=== PATIENT | female | born 1930 | race Caucasian/White ===

== ENCOUNTER 2016-05-29 13:01 | Emergency (ER) | payer MEDICARE, OTHER ==
--- NOTE | 2016-05-29 13:08 | EDM.PDOC ---
ED HISTORY OF PRESENT ILLNESS - General Chief Complaint: Respiratory Problem Stated Complaint: TROUBLE BREATHING/ COPD Time Seen by Provider: 05/29/16 13:08 Source of Information: Reports: Patient History Limitations: Reports: No limitations - History of Present Illness INITIAL COMMENTS - FREE TEXT/NARRATIVE: 86-year-old female presents to the ED in the accompaniment of her son. History of gradually worsening dyspnea over the last 24 hours. No worsening of her cough. Oxygen saturations dropped to as low as 62% on normal exertion today. She has chronic COPD/asthma. Has a history of heart failure as well. She reports her weight is staying around one [id number] daily. She is currently on Lasix 40 mg twice daily. No real changes in her medications have been made in the recent 3 months. No associated fever chills or sputum production. She does present a little bit of phlegm first in the morning. No hemoptysis. No chest pain. Usually on oxygen 2.5 L at all times. She is a little bit of nasal congestion and feels her throat is a little parched lay almost like it has thrush.she was able sleep from about 10 to 1:30 and then fell back asleep about 4:00 after taking her breathing treatments for while. Symptom Onset Date: 05/28/16 Timing/Duration: Reports: Hour(s):, Getting worse, Gradual onset Severity: moderate Location, General: Reports: chest (dyspnea.) Quality: Reports: Other (shortness of breath) Improves with: Reports: Rest (and oxygen.) Worsens with: Reports: Movement Context, General: Denies: Activity, Exercise, Sick contact, Trauma, Other Associated Symptoms (General): Reports: cough, malaise, shortness of breath ( see history present illness), weakness (feels little weak today.). Denies: confusion, chest pain, cough w sputum, diaphoresis, fever/chills, headaches, loss of appetite, nausea/vomiting, rash, seizure, syncope Treatments [employer]: Reports: Other (see below) (no changes in medications. She took her normal medications this morning.) - Related Data Allergies/ADRs: Allergies Allergy/AdvReac Type Severity Reaction Status Date / Time amlodipine [From Norvasc] Allergy Other Verified 05/29/16 13:19 benazepril Allergy Itching Verified 03/01/15 11:58 carvedilol [From Coreg] Allergy Other Verified 05/29/16 13:20 irbesartan Allergy Itching Verified 03/01/15 11:58 potassium chloride Allergy Itching Verified 05/29/16 13:19 ramipril Allergy Itching Verified 03/01/15 11:58 losartan potassium Allergy Itching Uncoded 05/29/16 13:20 Home Meds: Home Meds Albuterol Sulfate 1 ampule NEB Q4HR PRN 11/12/13 [History] Arformoterol [Brovana] 15 mcg IH BID 11/12/13 [History] Atenolol 25 mg PO BID 11/12/13 [History] Budesonide [Pulmicort] 0.5 mg NEB BID 11/12/13 [History] Ca Cmb No.1/Vit D3/B-6/FA/B12 [Vitamin D3 1,000 Unit] 1,000 mg PO DAILY [History] Furosemide [Lasix] 40 mg PO BID 11/12/13 [History] [place]-3 Fatty Acids [Fish Oil] 500 mg PO DAILY 11/12/13 [History] cycloSPORINE [Restasis] 1 drop TOP DAILY 11/12/13 [History] prednisoLONE Acetate [Pred Forte 1% Ophth Susp] 1 drop OP DAILY 11/12/13 [ History] Acyclovir [Zovirax] 800 mg PO DAILY 03/01/15 [History] Levothyroxine [Synthroid] 100 mcg PO DAILY 03/01/15 [History] Umeclidinium Brm/Vilanterol Tr [Anoro Ellipta 62.5-25 Mcg INH] 1 puff INH DAILY 03/01/15 [History] cloNIDine [Catapres] 0.1 mg PO BID 03/01/15 [History] methylPREDNISolone [Medrol] 0 mg PO ASDIRECTED 03/04/15 [History] Carboxymethylcell/Glycerin/Pf [Refresh Optive Sensitive Drops] 1 drop TOP DAILY 05/29/16 [History] Magnesuim Potassium Otc 66 mg PO TID 05/29/16 [History] Spironolactone [Aldactone] 25 mg PO BID #60 tablet 05/29/16 [Rx] Theophylline [Theophylline Anhydrous] 300 mg PO BID 05/29/16 [History] prednisoLONE Acetate [Prednisolone Acetate] 1 drop TOP TID 05/29/16 [History] Past Medical History Cardiovascular History: Reports: Heart Failure, High cholesterol, Hypertension Respiratory History: Reports: COPD Other Respiratory History: Chronic oxygen use at 2 liters Endocrine/Metabolic History: Reports: Hypothyroidism (on levo thyroxine supplement.) 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 Other Dermatologic History: Varicose Vein Surgery - Past Surgical History Other HEENT Surgeries/Procedures: Bilateral cornea transplant Social & Family History - Tobacco Use Smoking Status *Q: Former Smoker Years of Tobacco use: 30 Packs/Tins Daily: 5 Used Tobacco, but Quit: Yes Month Tobacco Last Used: 1998 Second Hand Smoke Exposure: No - Recreational Drug Use Recreational Drug Use: No - Living Situation & Occupation Living situation: Reports: alone Occupation: retired ED ROS GENERAL - Review of Systems Review Of Systems: See Below Constitutional: Reports: weakness, fatigue, decreased appetite (today). Denies : fever, chills, malaise, weight loss HEENT: Reports: Other (throat feels a bit raw. She morning if she doesn't have a bit of thrush.) Respiratory: Reports: shortness of breath, wheezing. Denies: pleuritic chest pain, cough, sputum, hemoptysis Cardiovascular: Reports: No symptoms, Blood pressure problem, Dyspnea on exertion (usually a bit in her lower cavities. No worse lately.), Edema. Denies : Chest pain, Claudication (chronic hypertension), Lightheadedness, Orthopnea, Palpitations (chronic), PND, Syncope, Other Endocrine: Reports: fatigue GI/Abdominal: Reports: No symptoms : Reports: frequency, urgency Musculoskeletal: Reports: back pain, joint pain Skin: Reports: no symptoms (knees and hips) Neurological: Reports: no symptoms Psychiatric: Reports: No symptoms Hematologic/Lymphatic: Reports: no symptoms ED EXAM, GENERAL - Physical Exam Exam: See Below Exam Limited By: No limitations General Appearance: alert, WD/WN, no apparent distress, other (she is working fairly hard to break.) Eye Exam: bilateral eye: normal inspection Throat/Mouth: Normal inspection, Normal lips, Normal oropharynx Head: atraumatic, normocephalic Neck: normal inspection, supple, non-tender. No: limited range of motion, lymphadenopathy (L), lymphadenopathy (R) Respiratory/Chest: no accessory muscle use, respiratory distress (mild tachypnea 20-24 per minute.), decreased breath sounds (decreased breath sounds in the posterior 40% of lung tavarez.), rales (base of right lung.) Cardiovascular: normal peripheral pulses, regular rate, rhythm, no edema, no gallop, no murmur Peripheral Pulses: 2+: posterior tibial (L), posterior tibial (R), dorsalis pedis (L), dorsalis pedis (R) GI/Abdominal: normal bowel sounds, soft, non tender, no organomegaly, no abnormal bruit Back Exam: full range of motion. No: CVA tenderness (L), CVA tenderness (R) Extremities: normal range of motion, non-tender, pedal edema (2+ pitting edema primarily lower extremity around the ankle.) Neurological: alert, oriented, CN II-XII intact, normal cognition Psychiatric: normal affect, normal mood Skin Exam: Warm, Dry, Intact, Normal color, No rash EKG INTERPRETATION EKG Date: 05/29/16 Time: 13:20 Rhythm: NSR Rate (beats/min): 71 [place]: RAD-right axis deviation (borderline. IE vertical heart) P-wave: present QRS: normal ST-T: normal QT: prolonged (mildly prolonged) Course - Vital Signs Last Recorded V/S: Last Vital Signs Temp 35.6 C 05/29/16 13:10 Pulse 73 05/29/16 13:10 Resp 20 05/29/16 13:10 BP 161/66 H 05/29/16 13:10 Pulse Ox 91 L 05/29/16 13:26 - Orders/Labs/Meds Orders: Active Orders 24 hr Category Date Time Status EKG Documentation Completion [RC] STAT Care 05/29/16 13:11 Active Oxygen Therapy [RC] ASDIRECTED Care 05/29/16 13:20 Active Peripheral IV Care [RC] . DIRECTED Care 05/29/16 13:20 Active RT Aerosol Therapy [RC] ASDIRECTED Care 05/29/16 13:26 Active Chest 1V Frontal [CR] Stat Exams 05/29/16 13:45 Taken Sodium Chloride 0.9% [Saline Flush] Med 05/29/16 13:20 Active 10 ml FLUSH ASDIRECTED PRN Peripheral IV Insertion Adult [OM.PC] Stat Oth 05/29/16 13:20 Ordered Medication Orders Sodium Chloride (Saline Flush) 10 ml FLUSH ASDIRECTED PRN PRN Reason: Keep Vein Open Last Admin: 05/29/16 13:33 Dose: 10 ml Labs: Laboratory Tests 05/29/16 05/29/16 05/29/16 Range/Units 13:12 13:12 13:12 WBC 8.30 (3.98-10.04) K/mm3 RBC 4.43 (3.98-5.22) M/mm3 Hgb 14.6 (11.2-15.7) gm/L Hct 46.0 H (34.1-44.9) % MCV 103.8 H (79.4-94.8) fl MCH 33.0 H (25.6-32.2) pg MCHC 31.7 L (32.2-35.5) g/dl RDW Std Deviation 51.5 H (36.4-46.3) fL Plt Count 352 (182-369) K/mm3 MPV 9.7 (9.4-12.3) fl Neutrophils % (Manual) 64 H (40-60) % Band Neutrophils % 3 (0-10) % Lymphocytes % (Manual) 13 L (20-40) % Atypical Lymphs % 4 % Monocytes % (Manual) 5 (2-10) % Eosinophils % (Manual) 11 H (0.7-5.8) % Basophils % (Manual) 0 L (0.1-1.2) Toxic Granulation Few Platelet Estimate Adequate Plt Morphology Comment See note Polychromasia Few Anisocytosis 1+ slight Stomatocytes Moderate Schistocytes Few RBC Morph Comment Not Reportable Sodium 141 (136-145) mEq/L Potassium 4.5 (3.5-5.1) mEq/L Chloride 101 (98-107) mEq/L Carbon Dioxide 35 H (21-32) mEq/L Anion Gap 9.5 (5-15) BUN 54 H (7-18) mg/dL Creatinine 1.9 H (0.55-1.02) mg/dL Est Cr Clr Drug Dosing 19.03 mL/min Estimated GFR (MDRD) 25 (>60) mL/min BUN/Creatinine Ratio 28.4 H (14-18) Glucose 105 (83-115) mg/dL Calcium 10.0 (8.5-10.1) mg/dL Magnesium 2.3 (1.8-2.4) mg/dl Total Bilirubin 0.7 (0.2-1.0) mg/dL AST 24 (15-37) U/L ALT 29 (14-59) U/L Alkaline Phosphatase 55 (46-116) U/L CK-MB (CK-2) 3.1 (0-3.6) ng/ml Troponin I 0.017 (0.00-0.056) ng/mL B-Natriuretic Peptide 473 H (0-100) pg/mL Total Protein 7.2 (6.4-8.2) g/dl Albumin 3.4 (3.4-5.0) g/dl Globulin 3.8 gm/dL Albumin/Globulin Ratio 0.9 L (1-2) Meds: Medications Generic Name Dose Route Start Last Admin Trade Name Freq PRN Reason Stop Dose Admin Sodium Chloride 10 ml 05/29/16 13:20 05/29/16 13:33 Saline Flush FLUSH 10 ml ASDIRECTED PRN Administration Keep Vein Open Discontinued Medications Generic Name Dose Route Start Last Admin Trade Name Freq PRN Reason Stop Dose Admin Albuterol/Ipratropium 3 ml 05/29/16 13:26 05/29/16 14:04 Duoneb 3.0-0.5 Mg/3 Ml NEB 05/29/16 13:27 3 ml ONETIME ONE Administration Furosemide 40 mg 05/29/16 13:21 05/29/16 13:33 Lasix IVPUSH 05/29/16 13:22 40 mg NOW ONE Administration - Radiology Interpretation Free Text/Narrative:: 86-year-old female attends the ED with increasing dyspnea. This seems to occur over the last 24-36 hours. She was awake for several hours during the night due to dyspnea. Improved with breathing treatments at home. She denies any increasing cough or sputum production. No fever or chills. Nose is a bit runny. Has not been in contact with anybody with influenza that she knows about. She did have a flu shot. She states her weight gain remained stable. She remains on 2.5 liters of oxygen at all times. She had increased to 4 L per minute to get here assessed up to as low as 62%. No recent changes in any of her medications. Exam reveals a few rales in the right base. She is on Lasix 40 mg twice a day. Minimal dependent edema in her lower extremities. Triage did ECG shows sinus rhythm at 71 per minute with frequent PACs. No signs of ischemia. Plan chest x- ray one view. Routine labs to include BMP and magnesium level peripheral IV lock will be started and she will be given Lasix 40 mg IV. O2 will be maintained at 3 L per minute at this time. O2 sats were 90% upon arrival - Re-Assessments/Exams Free Text/Narrative Re-Assessment/Exam: 05/29/16 13:54chest x-ray reveals borderline cardiomegaly. There is a pattern of mild vascular congestion. The costophrenic angles are mildly blunted. No pleural effusions. 05/29/16 14:09labs show a white count of 8.30 with a normal differential. Hemoglobin is 14.6 platelets 33,000. Chemistry shows a sodium of 141 potassium 4.5 bicarbonate is elevated at 35 meaning she is a Bermudez to retain her. O2 sats remained 92% on 3 L. Creatinine is 1.9 which is higher than her usual EGFR is 25 BUN is 54 the mesial normal at 2.3. Troponin is less than 0.017 BNP today is 473. I suspect her increased dyspnea is simply just due to a little bit of increased vascular congestion. I given her Lasix 40 IV on initial assessment. We will place her on Aldactone 25 mg twice daily in the morning with her Lasix tablet to see if we can improve her diuresis potassium today is 4.5. Renal function will have to be checked in 7-10 days time. 05/29/16 14:25I did find out she takes an [id number] potassium magnesium supplement. She was taking his 3 times daily advised to reduce it to once daily to prevent hyperkalemia from the Aldactone dosage. I spoke with Sanjuanita Marquez her primary care provider within the next 7-10 days to have repeat serum potassium and renal function done. Departure - Departure Time of Disposition: 14:26 Disposition: Home, Self-Care 01 Condition: fair Clinical Impression: COPD (chronic obstructive pulmonary disease) with acute bronchitis CHF (congestive heart failure) Qualifiers: Congestive heart failure type: diastolic Congestive heart failure chronicity: acute on chronic Qualified Code(s): I50.33 - Acute on chronic diastolic ( congestive) heart failure Prescriptions: Spironolactone [Aldactone] 25 mg PO BID #60 tablet Referrals: Fatuma Marquez, [facility] [Primary Care Provider] - Additional Instructions: Evaluation and he missed them today in regards to increased trouble breathing over the last 24 hours.known history of chronic obstructive pulmonary disease and need for continuous oxygen therapy and a history of mild heart failure secondary to emphysema/ COPD.exam revealed a few crackles in the base of the right lung. You therefore received Lasix 40 mg intravenously to help clear some of the fluid from the lungs. Chest x-ray also suggested mild increased fluid within the veins of the lung. Lab work showed no evidence of heart related illness in terms of heart attacks after. He did reveal evidence of increased fluid within the lungs as identified clinically. Therefore you will continue all of your current medications the same as before. Obviously her Lasix they normally would take at 2:00 in the afternoon has been given intravenously we do not need to further tablets a day. Change in medicine will be to use Aldactone 25 mg twice daily take it with your Lasix pill twice daily. Extra potassium and magnesium supplement to one tablet once daily. Followup up with Fatuma Marquez in about 7-10 days time to have your renal function and potassium level rechecked with the increased dose and Aldactone. Of course return to the ED if any further problems occur. - My Orders Last 24 Hours: My Active Orders 05/29/16 13:11 EKG Documentation Completion [RC] STAT 05/29/16 13:20 Oxygen Therapy [RC] ASDIRECTED Peripheral IV Care [RC] . DIRECTED Sodium Chloride 0.9% [Saline Flush] 10 ml FLUSH ASDIRECTED PRN Peripheral IV Insertion Adult [OM.PC] Stat 05/29/16 13:26 RT Aerosol Therapy [RC] ASDIRECTED 05/29/16 13:45 Chest 1V Frontal [CR] Stat - Assessment/Plan Last 24 Hours: My Active Orders 05/29/16 13:11 EKG Documentation Completion [RC] STAT 05/29/16 13:20 Oxygen Therapy [RC] ASDIRECTED Peripheral IV Care [RC] . DIRECTED Sodium Chloride 0.9% [Saline Flush] 10 ml FLUSH ASDIRECTED PRN Peripheral IV Insertion Adult [OM.PC] Stat 05/29/16 13:26 RT Aerosol Therapy [RC] ASDIRECTED 05/29/16 13:45 Chest 1V Frontal [CR] Stat
[2016-05-29 13:13] VITALS: BP 161/66
[2016-05-29] MEDS ORDERED: Sodium Chloride 0.9% 10 ML Syringe FLUSH PRN (13:20)
[2016-05-29] MEDS ORDERED: Furosemide 40 MG/4 ML VIAL IVPUSH ONE (13:21)
[2016-05-29] MEDS ORDERED: Albuterol/Ipratropium 3.0-0.5 MG/3 ML Neb Soln NEB ONE (13:26)
--- NOTE | 2016-05-30 08:17 | CR ---
Chest: Portable view of the chest was obtained. Comparison: Previous chest x-ray of 02/03/15. Heart size and mediastinum are within normal limits for portable technique. Central lung markings are increased which appear fairly stable from previous exam. No acute infiltrates are seen. Bony structures show scoliosis within the spine. Impression: 1. Stable findings. Nothing acute is identified on portable chest x-ray. Diagnostic code #2
== END 2016-05-29 14:50 | disposition home or self-care (01) ==
LOC: JD.ED 13:01
DX: I11.0 Hypertensive heart disease with heart failure (principal); I50.33 Acute on chronic diastolic (congestive) heart failure; J44.0 Chronic obstructive pulmonary disease with (acute) lower respiratory infection; J20.9 Acute bronchitis, unspecified; Z87.891 Personal history of nicotine dependence; Z85.828 Personal history of other malignant neoplasm of skin; Z98.890 Other specified postprocedural states; Z79.899 Other long term (current) drug therapy; Z88.8 Allergy status to other drugs, medicaments and biological substances
CPT/HCPCS: 36415; 71010; 80053; 82553; 83735; 83880; 84484; 85025; 87804; 93005; 94664; 96374; 99285; J1940; J7050

== ENCOUNTER 2016-06-07 17:19 | Inpatient (IN) | payer MEDICARE, OTHER ==
[2016-06-07] MEDS ORDERED: Sodium Chloride 0.9% 10 ML Syringe FLUSH PRN (17:35)
[2016-06-07] MEDS ORDERED: methylPREDNISolone Sodium Succinate 125 MG/2 ML SDV IM ONE (17:53)
[2016-06-07] MEDS ORDERED: methylPREDNISolone Sodium Succinate 125 MG/2 ML SDV IVPUSH ONE (18:12)
--- NOTE | 2016-06-07 18:29 | EDM.PDOC ---
ED HISTORY OF PRESENT ILLNESS - General Chief Complaint: Respiratory Problem Stated Complaint: LOW O2 Time Seen by Provider: 06/07/16 17:35 Source of Information: Reports: Patient, Family, RN notes reviewed - History of Present Illness INITIAL COMMENTS - FREE TEXT/NARRATIVE: 86-year-old female has been sent over from clinic for evaluation of "possible pulmonary embolism", difficulty breathing. She does have history of COPD and CHF chronically. SHe was evaluated here in the ED 9 days ago for difficulty breathing and found to be in very mild CHF superimposed on her chronic COPD. At that time Aldactone was added to her regimen of 40 mg furosemide twice a day. She followed up at the clinic today for labs to check renal status. Her creatinine and BUN are mildly elevated today from 9 days ago. BUN today is 62 last week 54 creatinine 2.15 today, last week 1.9. Of note her BNP 9 days ago was 473, decreased to 259 today. Because of her tachypnea and chronic and continued shortness of breath there was concern for possible PE. However with her elevated creatinine she could not be scheduled for outpatient CT pulmonary angiogram. Patient states her breathing really is not worse than what it has been for quite some time. She is on oxygen chronically at 2 and half to 3 L nasal cannula. She does get quite short of breath with walking and exertion but is able to recover with rest. She states she's been able to sleep in a lying position. He does have occasional nonproductive cough but not worse than usual. No recent fever or chills. No chest or abdominal pain nausea or vomiting. She states that her legs have not been swelling and no unusual calf discomfort. She states she has lost weight and is now about one or 2 pounds below her baseline of 170. - Related Data Allergies/ADRs: Allergies Allergy/AdvReac Type Severity Reaction Status Date / Time amlodipine [From Norvasc] Allergy Other Verified 06/07/16 17:33 benazepril Allergy Itching Verified 06/07/16 17:33 carvedilol [From Coreg] Allergy Other Verified 06/07/16 17:33 irbesartan Allergy Itching Verified 06/07/16 17:33 potassium chloride Allergy Itching Verified 06/07/16 17:33 ramipril Allergy Itching Verified 06/07/16 17:33 losartan potassium Allergy Itching Uncoded 05/29/16 13:20 Home Meds: Home Meds Albuterol Sulfate 1 ampule NEB Q4HR PRN 11/12/13 [History] Arformoterol [Brovana] 15 mcg IH BID 11/12/13 [History] Atenolol 25 mg PO BID 11/12/13 [History] Budesonide [Pulmicort] 0.5 mg NEB BID 11/12/13 [History] Ca Cmb No.1/Vit D3/B-6/FA/B12 [Vitamin D3 1,000 Unit] 5,000 mg PO DAILY [History] Furosemide [Lasix] 40 mg PO BID 11/12/13 [History] [place]-3 Fatty Acids [Fish Oil] 500 mg PO DAILY 11/12/13 [History] cycloSPORINE [Restasis] 1 drop TOP DAILY 11/12/13 [History] prednisoLONE Acetate [Pred Forte 1% Ophth Susp] 1 drop OP DAILY 11/12/13 [ History] Acyclovir [Zovirax] 800 mg PO DAILY 03/01/15 [History] Levothyroxine [Synthroid] 100 mcg PO DAILY 03/01/15 [History] Umeclidinium Brm/Vilanterol Tr [Anoro Ellipta 62.5-25 Mcg INH] 1 puff INH DAILY 03/01/15 [History] cloNIDine [Catapres] 0.1 mg PO BID 03/01/15 [History] methylPREDNISolone [Medrol] 0 mg PO ASDIRECTED 03/04/15 [History] Carboxymethylcell/Glycerin/Pf [Refresh Optive Sensitive Drops] 1 drop TOP DAILY 05/29/16 [History] Magnesuim Potassium Otc 66 mg PO TID 05/29/16 [History] Spironolactone [Aldactone] 25 mg PO BID #60 tablet 05/29/16 [Rx] Theophylline [Theophylline Anhydrous] 300 mg PO BID 05/29/16 [History] Ubidecarenone [Co Q-10] 100 mg PO DAILY 05/29/16 [History] prednisoLONE Acetate [Prednisolone Acetate] 1 drop TOP TID 05/29/16 [History] Past Medical History Cardiovascular History: Reports: Heart Failure, High cholesterol, Hypertension Respiratory History: Reports: Asthma, COPD Other Respiratory History: Chronic oxygen use at 3 liters Endocrine/Metabolic History: Reports: Hypothyroidism 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 Other Dermatologic History: Varicose Vein Surgery - Past Surgical History HEENT Surgical History: Reports: Cataract surgery Other HEENT Surgeries/Procedures: Bilateral cornea transplant GI Surgical History: Reports: Colonoscopy Social & Family History - Tobacco Use Smoking Status *Q: Former Smoker Years of Tobacco use: 30 Packs/Tins Daily: 5 Used Tobacco, but Quit: Yes Month Tobacco Last Used: 1998 Second Hand Smoke Exposure: No - Caffeine Use Caffeine Use: Reports: Coffee - Recreational Drug Use Recreational Drug Use: No - Living Situation & Occupation Living situation: Reports: alone Occupation: retired ED ROS GENERAL - Review of Systems Review Of Systems: See Below Constitutional: Denies: fever, chills, diaphoresis HEENT: Denies: Sinus problem, Throat pain Respiratory: Reports: shortness of breath (chronic), wheezing (chronic intermittent), cough (occasional). Denies: sputum, hemoptysis Cardiovascular: Denies: Chest pain GI/Abdominal: Denies: Abdominal pain, Nausea, Vomiting Musculoskeletal: Denies: shoulder pain, arm pain Skin: Reports: no symptoms Neurological: Reports: dizziness (mild when standing), difficulty walking (she does get short of breath with ambulation), weakness (mild). Denies: trouble speaking ED EXAM, GENERAL - Physical Exam Exam: See Below General Appearance: alert, other (mild tachypnea noted, otherwise no apparent distress) Eye Exam: bilateral eye: PERRL Nose: normal inspection Throat/Mouth: Normal inspection, Normal oropharynx Head: atraumatic. No: facial swelling Neck: supple, full range of motion, other (no JVD) Respiratory/Chest: respiratory distress (mild to get), decreased breath sounds ( bilateral). No: rhonchi, wheezing Cardiovascular: regular rate, rhythm GI/Abdominal: soft, non tender Back Exam: No: CVA tenderness (L), CVA tenderness (R) Extremities: No: pedal edema, leg pain, increased warmth, redness Neurological: alert, oriented, no motor/sensory deficits Skin Exam: Warm, Dry, Normal color EKG INTERPRETATION EKG Date: 06/07/16 Rhythm: NSR [place]: RAD-right axis deviation P-wave: present ST-T: other (mild nonspecific ST changes) Course - Vital Signs Last Recorded V/S: Last Vital Signs Temp 99 F 03/07/17 17:34 Pulse 77 06/07/16 17:34 Resp 24 H 06/07/16 17:34 BP 178/64 H 06/07/16 17:34 Pulse Ox 91 L 06/07/16 19:11 - Orders/Labs/Meds Orders: Active Orders 24 hr Category Date Time Status EKG 12 Lead [EKG Documentation Completion] [RC] STAT Care 06/07/16 17:36 Active Peripheral IV Care [RC] . DIRECTED Care 06/07/16 17:36 Active RT Aerosol Therapy [RC] ASDIRECTED Care 06/07/16 18:54 Active Sodium Chloride 0.9% [Saline Flush] Med 06/07/16 17:35 Active 10 ml FLUSH ASDIRECTED PRN Peripheral IV Insertion Adult [OM.PC] Stat Oth 06/07/16 17:36 Ordered Medication Orders Sodium Chloride (Saline Flush) 10 ml FLUSH ASDIRECTED PRN PRN Reason: Keep Vein Open Last Admin: 06/07/16 18:06 Dose: 10 ml Labs: Laboratory Tests 06/07/16 06/07/16 06/07/16 Range/Units 17:50 17:50 17:50 WBC 9.31 (3.98-10.04) K/mm3 RBC 4.77 (3.98-5.22) M/mm3 Hgb 15.6 (11.2-15.7) gm/L Hct 48.5 H (34.1-44.9) % MCV 101.7 H (79.4-94.8) fl MCH 32.7 H (25.6-32.2) pg MCHC 32.2 (32.2-35.5) g/dl RDW Std Deviation 50.3 H (36.4-46.3) fL Plt Count 360 (182-369) K/mm3 MPV 9.8 (9.4-12.3) fl Neut % (Auto) 75.2 H (34.0-71.1) % Lymph % (Auto) 13.4 L (19.3-51.7) % [place] % (Auto) 9.1 (4.7-12.5) % Eos % (Auto) 1.7 (0.7-5.8) Baso % (Auto) 0.4 (0.1-1.2) % Neut # 6.99 H (1.56-6.13) K/mm3 Lymph # 1.25 (1.18-3.74) K/mm3 [place] # 0.85 H (0.24-0.36) K/mm3 Eos # 0.16 (0.04-0.36) K/mm3 Baso # 0.04 (0.01-0.08) K/mm3 D-Dimer, Quantitative (0.19-0.59) mg/L Troponin I < 0.017 (0.00-0.056) ng/mL B-Natriuretic Peptide 259 H (0-100) pg/mL 06/07/16 Range/Units 17:50 WBC (3.98-10.04) K/mm3 RBC (3.98-5.22) M/mm3 Hgb (11.2-15.7) gm/L Hct (34.1-44.9) % MCV (79.4-94.8) fl MCH (25.6-32.2) pg MCHC (32.2-35.5) g/dl RDW Std Deviation (36.4-46.3) fL Plt Count (182-369) K/mm3 MPV (9.4-12.3) fl Neut % (Auto) (34.0-71.1) % Lymph % (Auto) (19.3-51.7) % [place] % (Auto) (4.7-12.5) % Eos % (Auto) (0.7-5.8) Baso % (Auto) (0.1-1.2) % Neut # (1.56-6.13) K/mm3 Lymph # (1.18-3.74) K/mm3 [place] # (0.24-0.36) K/mm3 Eos # (0.04-0.36) K/mm3 Baso # (0.01-0.08) K/mm3 D-Dimer, Quantitative 1.09 H (0.19-0.59) mg/L Troponin I (0.00-0.056) ng/mL B-Natriuretic Peptide (0-100) pg/mL Meds: Medications Generic Name Dose Route Start Last Admin Trade Name Freq PRN Reason Stop Dose Admin Sodium Chloride 10 ml 06/07/16 17:35 06/07/16 18:06 Saline Flush FLUSH 10 ml ASDIRECTED PRN Administration Keep Vein Open Discontinued Medications Generic Name Dose Route Start Last Admin Trade Name Gris PRN Reason Stop Dose Admin Albuterol 2.5 mg 06/07/16 18:53 06/07/16 19:09 Proventil Neb Soln NEB 06/07/16 18:54 2.5 mg ONETIME ONE Administration Methylprednisolone Sodium Succinate 125 mg 06/07/16 18:12 06/07/16 18:05 Solu-Medrol IVPUSH 06/07/16 18:13 125 mg ONETIME ONE Administration - Re-Assessments/Exams Free Text/Narrative Re-Assessment/Exam: 06/07/16 19:20. chest x-ray reviewed from clinic does not show acute infiltrate , does not show any evidence for recurrent CHF. Labs have been reviewed from clinic and are as stated. White blood count checked 9800. BNP 277. I did check a d-dimer which was very mildly elevated at 1.07. With her creatinine today of 2.15 and creatinine last week when she was in mild failure of one point She's not a candidate for CT pulmonary angiogram. I were to hydrate her I am going to make her breathing worse and put her into CHF. There would still be considerable risk for kidney damage secondary to the IV contrast. Likelihood of her having significant PE today is extremely minimal. SHe does not have any leg swelling warmth erythema or tenderness. D Dimer of 1.07 Is not a significant elevation and extremely likely false positive. We have checked with radiology as far as getting her scheduled for a VQ scan. It is after hours. We are not able to get that done tonight. I've written an outpatient order for VQ scan that will be forwarded to radiology 7:00 tomorrow morning. Hopefully that can be done next day or 2. I've asked her to cut back on her Aldactone from 50 mg daily to 25 mg daily. We've given her Solu-Medrol 125 mg IV. I will continue her on tapering prednisone for the next 7 days. she feels up to going home and wants to go home. Discharge instructions as documented Departure - Departure Time of Disposition: 19:24 Disposition: Home, Self-Care 01 Condition: fair Clinical Impression: COPD exacerbation Dyspnea Qualifiers: Dyspnea type: dyspnea on exertion Qualified Code(s): R06.09 - Other forms of dyspnea Instructions: Chronic Obstructive Pulmonary Disease Exacerbation, [id number] Referrals: Fatuma Marquez NP [Primary Care Provider] - Forms: ED Department Discharge Additional Instructions: decrease years spironolactone Or Aldactone to once daily, continue Lasix twice daily, continue other medications as prescribed, prednisone as prescribed 40 mg for the next 3 mornings, then 20 mg every morning for 2 days then 10 mg every morning for 2 days, we are going to send an order to radiology in the morning for an outpatient VQ scan. They will call you for a time that this can be done. Followup at the clinic with Danna in 2-3 days for recheck, call for appointment. Return to ED as needed if symptoms worsening in any way. - My Orders Last 24 Hours: My Active Orders 06/07/16 17:35 Sodium Chloride 0.9% [Saline Flush] 10 ml FLUSH ASDIRECTED PRN 06/07/16 17:36 EKG 12 Lead [EKG Documentation Completion] [RC] STAT Peripheral IV Care [RC] . DIRECTED Peripheral IV Insertion Adult [OM.PC] Stat 06/07/16 18:54 RT Aerosol Therapy [RC] ASDIRECTED - Assessment/Plan Last 24 Hours: My Active Orders 06/07/16 17:35 Sodium Chloride 0.9% [Saline Flush] 10 ml FLUSH ASDIRECTED PRN 06/07/16 17:36 EKG 12 Lead [EKG Documentation Completion] [RC] STAT Peripheral IV Care [RC] . DIRECTED Peripheral IV Insertion Adult [OM.PC] Stat 06/07/16 18:54 RT Aerosol Therapy [RC] ASDIRECTED
[2016-06-07] MEDS ORDERED: Albuterol 0.083% 2.5 MG/3 ML Neb Soln NEB ONE (18:53)
--- NOTE | 2016-06-07 22:42 | PCM.HP ---
H&P History of Present Illness - General Date of Service: 06/07/16 Admit Problem/Dx: Admission Diagnosis/Problem Admission Diagnosis/Problem COPD, Severe chronic obstructive pulmonary disease Source of Information: Patient, Family, Provider History Limitations: Reports: No limitations - History of Present Illness Initial Comments - Free Text/Narative: 86 year old female, COPD on home O2 was about to be sent home when she developed profound drop O2 sat 65% on 4 l/min on her own O2 tank; she responded to O2 applied by the ED staff with subsequent rise in saturation to 87 %. She was initially sent to the [facility] ED for PE evaluation, however a CTA was not performed. The decision was influenced by her renal function, Cr 2.15. There was also a concern for CHF, 9 days ago, the BNP was 473; today it is low at 259. A CXR was not performed during her evaluation. Onset of Symptoms: Reports: sudden Symptom Onset Date: 06/07/16 Duration of Symptoms: Reports: Hour(s):, Getting worse Location: Reports: chest Severity: severe Improves with: Reports: Medication Worsens with: Reports: None Associated Symptoms: Reports: cough, shortness of breath, weakness Bilateral Chest Pain Score (Numeric/FACES): 3 - Related Data Allergies/Adverse Reactions: Allergies Allergy/AdvReac Type Severity Reaction Status Date / Time amlodipine [From Norvasc] Allergy Other Verified 06/07/16 17:33 benazepril Allergy Itching Verified 06/07/16 17:33 carvedilol [From Coreg] Allergy Other Verified 06/07/16 17:33 irbesartan Allergy Itching Verified 06/07/16 17:33 potassium chloride Allergy Itching Verified 06/07/16 17:33 ramipril Allergy Itching Verified 06/07/16 17:33 losartan potassium Allergy Itching Uncoded 05/29/16 13:20 Home Medications: Home Meds Albuterol Sulfate 1 ampule NEB Q4HR PRN 11/12/13 [History] Arformoterol [Brovana] 15 mcg IH BID 11/12/13 [History] Atenolol 25 mg PO BID 11/12/13 [History] Budesonide [Pulmicort] 0.5 mg NEB BID 11/12/13 [History] Ca Cmb No.1/Vit D3/B-6/FA/B12 [Vitamin D3 1,000 Unit] 5,000 mg PO DAILY [History] Furosemide [Lasix] 40 mg PO BID 11/12/13 [History] [place]-3 Fatty Acids [Fish Oil] 500 mg PO 1400 11/12/13 [History] cycloSPORINE [Restasis] 1 drop OP TID 11/12/13 [History] Acyclovir [Zovirax] 800 mg PO DAILY 03/01/15 [History] Levothyroxine [Synthroid] 100 mcg PO DAILY 03/01/15 [History] cloNIDine [Catapres] 0.1 mg PO BID 03/01/15 [History] Carboxymethylcell/Glycerin/Pf [Refresh Optive Sensitive Drops] 1 drop TOP Q4HR PRN 05/29/16 [History] Magnesuim Potassium Otc 99 mg PO 1000 05/29/16 [History] Theophylline [Theophylline Anhydrous] 300 mg PO BID 05/29/16 [History] Ubidecarenone [Co Q-10] 100 mg PO DAILY 05/29/16 [History] prednisoLONE Acetate [Prednisolone Acetate] 1 drop TOP TID 05/29/16 [History] Albuterol [Ventolin HFA] 2 inh INH Q4HR PRN 06/07/16 [History] Spironolactone [Aldactone] 25 mg PO 1400 06/07/16 [History] Umeclidinium [place] [Incruse Ellipta] 1 inh INH DAILY 06/07/16 [History] cycloSPORINE [Restasis] 1 drop OP BID 06/07/16 [History] prednisoLONE Acetate [Prednisolone Acetate] 1 drop OP DAILY 06/07/16 [History] Past Medical History Cardiovascular History: Reports: Heart Failure, High cholesterol, Hypertension Respiratory History: Reports: Asthma, COPD Other Respiratory History: Chronic oxygen use at 3 liters Endocrine/Metabolic History: Reports: Hypothyroidism 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 Other Dermatologic History: Varicose Vein Surgery - Past Surgical History HEENT Surgical History: Reports: Cataract surgery Other HEENT Surgeries/Procedures: Bilateral cornea transplant GI Surgical History: Reports: Colonoscopy Social & Family History - Tobacco Use Smoking Status *Q: Former Smoker Years of Tobacco use: 30 Packs/Tins Daily: 5 Used Tobacco, but Quit: Yes Month Tobacco Last Used: 1998 Second Hand Smoke Exposure: No - Caffeine Use Caffeine Use: Reports: Coffee - Recreational Drug Use Recreational Drug Use: No - Living Situation & Occupation Living situation: Reports: alone Occupation: retired H&P Review of Systems - Review of Systems: Review Of Systems: See Below General: Reports: fever, chills, malaise, weakness, decreased appetite HEENT: Reports: sore throat Pulmonary: Reports: shortness of breath, wheezing, cough Cardiovascular: Reports: no symptoms Gastrointestinal: Reports: No symptoms Genitourinary: Reports: no symptoms Musculoskeletal: Reports: no symptoms Skin: Reports: no symptoms Psychiatric: Reports: no symptoms Neurological: Reports: dizziness Hematologic/Lymphatic: Reports: no symptoms Immunologic: Reports: no symptoms Exam - Exam Exam: See Below - Vital Signs Vital Signs: Last Vital Signs Temp 36.7 C 06/07/16 22:19 Pulse 75 06/07/16 22:19 Resp 24 H 06/07/16 22:19 BP 107/80 06/07/16 22:19 Pulse Ox 88 L 06/07/16 22:19 Weight: 76.317 kg - Exam Quality Assessment: supplemental oxygen, DVT prophylaxis General: alert, oriented, cooperative, mild distress (prior to O2) HEENT: EACs clear, EOMI, Mucosa moist & pink, Nares patent, Normal nasal septum , Pupils equal, Pupils reactive Neck: supple, trachea midline Lungs: Decreased breath sounds, Rhonchi, Wheezing Cardiovascular: regular rate, regular rhythm Abdomen: normal bowel sounds, soft (Female) Exam: Deferred Rectal (Female) Exam: Deferred Back Exam: normal inspection Extremities: normal inspection Skin: warm Neurological: cranial nerves intact Neuro Extensive - Mental Status: alert, oriented x3, normal mood/affect, normal cognition, memory intact Neuro Extensive - Motor, Sensory, Reflexes: CN II-XII intact Psychiatric: alert, normal affect, normal mood - Patient Data Result Diagrams: 06/07/16 17:50 *Q Meaningful Use (ADM) - VTE *Q VTE Criteria *Q: - Stroke *Q Stroke Criteria *Q: - AMI *Q AMI Criteria *Q: - Problem List (1) COPD exacerbation SNOMED Code(s): 857460934, 027309155 ICD Code: J44.1 - CHRONIC OBSTRUCTIVE PULMONARY DISEASE W (ACUTE) EXACERBATION Status: Acute Current Visit: Yes (2) Dyspnea SNOMED Code(s): 170184148 ICD Code: R06.00 - DYSPNEA, UNSPECIFIED Status: Acute Current Visit: Yes Qualifiers: Dyspnea type: dyspnea on exertion Qualified Code(s): R06.09 - Other forms of dyspnea (3) Hypertension SNOMED Code(s): 60412115 ICD Code: I10 - ESSENTIAL (PRIMARY) HYPERTENSION Status: Chronic Current Visit: No Onset Date: 03/01/15 Qualifiers: Hypertension type: essential hypertension Qualified Code(s): I10 - Essential (primary) hypertension (4) Hypothyroidism SNOMED Code(s): 50506330 ICD Code: E03.9 - HYPOTHYROIDISM, UNSPECIFIED Status: Chronic Current Visit: No Onset Date: 03/01/15 Qualifiers: Hypothyroidism type: unspecified Qualified Code(s): E03.9 - Hypothyroidism , unspecified (5) Lower extremity edema SNOMED Code(s): 670420030 ICD Code: R60.0 - LOCALIZED EDEMA Status: Chronic Current Visit: No Onset Date: 03/01/15 Problem Details: 2/2 varicose veins, on fluid pill Problem List Initiated/Reviewed/Updated: Yes Orders Last 24hrs: Medication Orders Sodium Chloride (Saline Flush) 10 ml FLUSH ASDIRECTED PRN PRN Reason: Keep Vein Open Last Admin: 06/07/16 18:06 Dose: 10 ml Assessment/Plan Comment:: Impression: COPD exacerbation chronic O2 Query CAP Hypoxia with O2 response Chronic HTN ? DHF Hyperlipidemia Plan: Nebs IV ATBs IVF Diurese as needed Infectious work up DVT/GI prophylaxis SW/PT/OT
[2016-06-07] MEDS ORDERED: Albuterol 0.042% 1.25 MG/3 ML Neb Soln NEB PRN (23:27)
[2016-06-07] MEDS ORDERED: GLYCERIN TOP PRN (23:28)
[2016-06-07] MEDS ORDERED: CARBOXYMETHYLCELL TOP PRN (23:28)
[2016-06-07] MEDS ORDERED: Levofloxacin/Dextrose 5%-Water 750 MG in Premix Bag 1 BAG IV ONE (23:34)
[2016-06-08] MEDS: methylPREDNISolone Sodium Succinate 125 MG/2 ML SDV IVPUSH SCH ×5 (00:16→22:33)
[2016-06-08] MEDS: Levothyroxine 100 MCG Tab PO SCH (05:43)
[2016-06-08] MEDS ORDERED: Albuterol/Ipratropium 3.0-0.5 MG/3 ML Neb Soln NEB SCH ×2 (06:00→09:00)
[2016-06-08] MEDS: Budesonide 0.5 MG/2 ML Neb Susp NEB SCH ×2 (06:17→20:54)
[2016-06-08] MEDS ORDERED: Umeclidinium Bromide 62.5 MCG 30 Puff Inhaler IH SCH (08:00)
--- NOTE | 2016-06-08 08:28 | PCM.PN ---
- General Info Date of Service: 06/08/16 Admission Dx/Problem (Free Text): Admission Diagnosis/Problem Admission Diagnosis/Problem COPD, Severe chronic obstructive pulmonary disease Subjective Update: Follow up Functional Status: Reports: pain controlled, tolerating diet. Denies: urinating , new symptoms - Review of Systems General: Denies: fever, chills HEENT: Reports: no symptoms Pulmonary: Reports: shortness of breath Cardiovascular: Denies: chest pain Gastrointestinal: Denies: Abdominal pain, Nausea, Vomiting Genitourinary: Reports: no symptoms Musculoskeletal: Reports: no symptoms Skin: Denies: cyanosis Neurological: Denies: confusion, dizziness, difficulty walking, gait disturbance Psychiatric: Denies: depression, anxiety Systems Review Comment:: No overnight issues. She feels a little better. Her O2 sat drops with activity. Her lungs are diminished. She is currently on 3L NC. She admits to some muscle cramps on left leg. Her K 5.7. She is afebrile w/o leukocytosis. - Patient Data Vitals - most recent: Last Vital Signs Temp 36.2 C 06/08/16 07:43 Pulse 73 06/08/16 07:43 Resp 18 06/08/16 07:43 BP 136/66 06/08/16 07:43 Pulse Ox 90 L 06/08/16 07:43 Weight - most recent: 76.317 kg I&O - last 24 hours: Intake & Output 06/07/16 06/08/16 06/08/16 22:59 06:59 14:59 Intake Total 400 Output Total 850 Balance -450 Lab Results last 24 hrs: Laboratory Results - last 24 hr 06/08/16 06/08/16 Range/Units 05:40 05:40 WBC 5.59 (3.98-10.04) K/mm3 RBC 4.55 (3.98-5.22) M/mm3 Hgb 14.7 (11.2-15.7) gm/L Hct 46.1 H (34.1-44.9) % MCV 101.3 H (79.4-94.8) fl MCH 32.3 H (25.6-32.2) pg MCHC 31.9 L (32.2-35.5) g/dl RDW Std Deviation 49.7 H (36.4-46.3) fL Plt Count 335 (182-369) K/mm3 MPV 10.2 (9.4-12.3) fl Neut % (Auto) 92.1 H (34.0-71.1) % Lymph % (Auto) 6.8 L (19.3-51.7) % [place] % (Auto) 1.1 L (4.7-12.5) % Eos % (Auto) 0 L (0.7-5.8) Baso % (Auto) 0.0 L (0.1-1.2) % Neut # 5.15 (1.56-6.13) K/mm3 Lymph # 0.38 L (1.18-3.74) K/mm3 [place] # 0.06 L (0.24-0.36) K/mm3 Eos # 0.00 L (0.04-0.36) K/mm3 Baso # 0.00 L (0.01-0.08) K/mm3 Manual Slide Review Normal smear Sodium 135 L (136-145) mEq/L Potassium 5.7 H (3.5-5.1) mEq/L Chloride 99 (98-107) mEq/L Carbon Dioxide 31 (21-32) mEq/L Anion Gap 10.7 (5-15) BUN 54 H (7-18) mg/dL Creatinine 1.9 H (0.55-1.02) mg/dL Est Cr Clr Drug Dosing 18.23 mL/min Estimated GFR (MDRD) 25 (>60) mL/min BUN/Creatinine Ratio 28.4 H (14-18) Glucose 160 H (83-115) mg/dL Calcium 10.2 H (8.5-10.1) mg/dL Total Bilirubin 0.3 (0.2-1.0) mg/dL AST 18 (15-37) U/L ALT 24 (14-59) U/L Alkaline Phosphatase 49 (46-116) U/L C-Reactive Protein < 0.2 (<1.0) mg/dL Total Protein 6.7 (6.4-8.2) g/dl Albumin 2.9 L (3.4-5.0) g/dl Globulin 3.8 gm/dL Albumin/Globulin Ratio 0.8 L (1-2) Triglycerides 21 (<150) mg/dL Cholesterol 189 (<200) mg/dL LDL Cholesterol Direct 106 H* (<100) mg/dL HDL Cholesterol 84.0 H (40-59) mg/dL Mycoplasma pneumon IgM Negative (NEGATIVE) [place] Results last 24 hrs: Microbiology 06/08/16 00:00 Influenza Type A Antigen Screen - Final Nasopharyngeal Swab - Nare, Right NEGATIVE INFLUENZA A VIRUS AG Influenza Type B Antigen Screen - Final NEGATIVE INFLUENZA B VIRUS AG Med Orders - Current: Current Medications Acyclovir (Zovirax) 800 mg PO DAILY [facility] Albuterol (Proventil Neb Soln) 1.25 mg NEB Q4H PRN PRN Reason: Shortness of Breath Albuterol/Ipratropium (Duoneb 3.0-0.5 Mg/3 Ml) 3 ml NEB QIDRT [facility] Last Admin: 06/08/16 06:17 Dose: 3 ml Atenolol (Tenormin) 25 mg PO BID [facility] Budesonide (Pulmicort) 0.5 mg NEB BIDRT [facility] Last Admin: 06/08/16 06:17 Dose: 0.5 mg Clonidine HCl (Catapres) 0.1 mg PO BID [facility] Enoxaparin Sodium (Lovenox) 30 mg SUBCUT DAILY [facility] Furosemide (Lasix) 40 mg PO BID [facility] Levothyroxine Sodium (Synthroid) 100 mcg PO ACBREAKFAST [facility] Last Admin: 06/08/16 05:43 Dose: 100 mcg Methylprednisolone Sodium Succinate (Solu-Medrol) 125 mg IVPUSH Q6H [facility] Last Admin: 06/08/16 05:42 Dose: 125 mg Arformoterol 15 Mcg ([Brovana]) 0 mcg IH BID [facility] Cyclosporine [ (Restasis] 1 Drop) 0 each EYERT BID [facility] Cyclosporine [ (Restasis] 1 Drop) 0 each EYELF TID [facility] Ubidecarenone 100 Mg 0 each PO DAILY [facility] Carboxymethylcell/Glycerin/Pf [Refresh Optive Sensitive D 0 each TOP Q4HR PRN PRN Reason: Dry Eyes Prednisolone Acetate (Pred Forte 1% Ophth Susp) 0 ml EYERT DAILY [facility] Prednisolone Acetate (Pred Forte 1% Ophth Susp) 0 ml EYELF TID [facility] Sodium Chloride (Saline Flush) 10 ml FLUSH ASDIRECTED PRN PRN Reason: Keep Vein Open Last Admin: 06/07/16 18:06 Dose: 10 ml Spironolactone (Aldactone) 25 mg PO DAILY@1400 [facility] Theophylline (Theophylline Anhydrous) 300 mg PO BID [facility] Discontinued Medications Albuterol (Proventil Neb Soln) 2.5 mg NEB ONETIME ONE Stop: 06/07/16 18:54 Last Admin: 06/07/16 19:09 Dose: 2.5 mg Albuterol/Ipratropium (Duoneb 3.0-0.5 Mg/3 Ml) 3 ml NEB QID [facility] Levofloxacin/Dextrose 750 mg/ (Premix) 150 mls @ 100 mls/hr IV ONETIME ONE Stop: 06/08/16 01:03 Last Admin: 06/08/16 00:18 Dose: 100 mls/hr Methylprednisolone Sodium Succinate (Solu-Medrol) 125 mg IVPUSH ONETIME ONE Stop: 06/07/16 18:13 Last Admin: 06/07/16 18:05 Dose: 125 mg - Exam Quality Assessment: supplemental oxygen General: alert, oriented, cooperative, no acute distress HEENT: Pupils equal, Pupils reactive, EOMI, Mucous membr. moist/pink Neck: supple, trachea midline, no JVD, no thyromegaly Lungs: Normal respiratory effort, Decreased breath sounds, Rhonchi, Wheezing Cardiovascular: regular rate, regular rhythm Abdomen: bowel sounds present, soft, no tenderness, no distension (Female) Exam: Deferred Back Exam: normal inspection, decreased range of motion Extremities: no edema, normal pulses, no tenderness/swelling, no clubbing, no cyanosis, no calf tenderness Peripheral Pulses: 2+: dorsalis pedis (L), dorsalis pedis (R) Skin: warm, dry, intact Neurological: no new focal deficit Psy/Mental Status: alert, normal affect, normal mood - Problem List Review Problem List Initiated/Reviewed/Updated: Yes - Plan Plan:: Impression: Acute: COPD exacerbation chronic O2 Hypoxia with O2 response Mild Hyperkalemia Chronic: HTN ? DHF, completed 2D echo Hyperlipidemia Chronic Respiratory Failure, 2.5-3L O2 dependent Peripheral Edema Hypothyroidism Plan: Continue current treatment Routine AM Labs D/c Levaquin and start Azithromycin 500 mg IV daily for anti-inflammation IS q2 awake MagOx 400 mg po BID DVT/GI prophylaxis SW/PT/OT consult
[2016-06-08] MEDS ORDERED: Acyclovir 200 MG Cap PO SCH (09:00)
[2016-06-08] MEDS: Enoxaparin 30 MG/0.3 ML Syringe SUBCUT SCH (09:00)
[2016-06-08] MEDS ORDERED: ARFORMOTEROL 15 MCG IH SCH (09:00)
[2016-06-08] MEDS ORDERED: prednisoLONE Acetate 1% Ophth Susp 5 ML Bottle EYEBOTH SCH (09:00)
[2016-06-08] MEDS ORDERED: prednisoLONE Acetate 1% Ophth Susp 5 ML Bottle EARRT SCH (09:00)
[2016-06-08] MEDS ORDERED: Furosemide 40 MG Tab PO SCH (09:00)
[2016-06-08] MEDS: Atenolol 25 MG Tab PO SCH ×2 (09:01→21:40)
[2016-06-08] MEDS: cloNIDine 0.1 MG Tab PO SCH ×2 (09:01→21:40)
[2016-06-08] MEDS: prednisoLONE Acetate 1% Ophth Susp 5 ML Bottle EYERT SCH (09:02)
[2016-06-08] MEDS: prednisoLONE Acetate 1% Ophth Susp 5 ML Bottle EYELF SCH ×3 (09:02→21:45)
[2016-06-08] MEDS: Theophylline 300 MG Tab.ER PO SCH ×2 (10:02→21:41)
[2016-06-08] MEDS: Albuterol 0.083% 2.5 MG/3 ML Neb Soln NEB SCH ×3 (10:06→20:54)
[2016-06-08] MEDS: UMECLIDINIUM BROMIDE 62.5 MCG INH SCH (10:07)
--- NOTE | 2016-06-08 10:16 | CR ---
Chest: Two views of the chest were obtained. Comparison: Previous chest x-ray 05/29/16 Heart size and mediastinum are normal. Lung markings are slightly increased which appear to be chronic. No acute appearing infiltrates are seen. Scoliosis present within the spine. Bony structures are also osteopenic. Impression: 1. Stable chest x-ray. Nothing acute is appreciated on two-view chest x-ray. Diagnostic code #2
[2016-06-08] MEDS ORDERED: [UNRECOGNIZED DRUG - OTHER] EYEBOTH PRN (10:45)
[2016-06-08] MEDS: Cyclosporine [Restasis] 1 DROP EYERT SCH ×2 (11:20→21:44)
[2016-06-08] MEDS: Cyclosporine [Restasis] 1 DROP EYELF SCH ×3 (11:21→21:45)
[2016-06-08] MEDS: [UNRECOGNIZED DRUG - OTHER] PO SCH (11:21)
[2016-06-08] MEDS: Spironolactone 25 MG Tab PO SCH (13:52)
[2016-06-08] MEDS: Furosemide 40 MG Tab PO SCH (14:21)
[2016-06-08] MEDS: ARFORMOTEROL 15 MCG INH SCH (20:54)
[2016-06-08] MEDS: Albuterol 0.5% 2.5 MG/0.5 ML Neb Soln ONE (20:54)
[2016-06-08] MEDS: Magnesium Oxide 400 MG Tab PO SCH (21:40)
[2016-06-09] MEDS: Albuterol 0.083% 2.5 MG/3 ML Neb Soln NEB SCH ×5 (05:26→21:22)
[2016-06-09] MEDS: Budesonide 0.5 MG/2 ML Neb Susp NEB SCH ×2 (05:26→21:15)
[2016-06-09] MEDS: methylPREDNISolone Sodium Succinate 125 MG/2 ML SDV IVPUSH SCH ×3 (06:09→14:30)
[2016-06-09] MEDS: Levothyroxine 100 MCG Tab PO SCH (06:09)
[2016-06-09] MEDS: Furosemide 40 MG Tab PO SCH ×2 (06:09→14:19)
--- NOTE | 2016-06-09 07:30 | PCM.PN ---
- General Info Date of Service: 06/09/16 Admission Dx/Problem (Free Text): Admission Diagnosis/Problem Admission Diagnosis/Problem COPD, Severe chronic obstructive pulmonary disease Subjective Update: Follow up Functional Status: Reports: pain controlled, tolerating diet, ambulating, urinating. Denies: new symptoms - Review of Systems General: Denies: fever, chills HEENT: Denies: contact lenses Pulmonary: Reports: shortness of breath, cough Cardiovascular: Denies: chest pain, dyspnea on exertion Gastrointestinal: Denies: Abdominal pain, Nausea, Vomiting Genitourinary: Reports: no symptoms Musculoskeletal: Reports: no symptoms Skin: Denies: cyanosis Neurological: Denies: confusion, difficulty walking, gait disturbance Psychiatric: Denies: depression, anxiety Systems Review Comment:: Slept okay. She is not getting worse breathing man. O2 sat still drops with ambulation. WBC is up today at 11.99 (5.59) due to de-margination from high dose IV steroids. K is now at 4.8 and Na is now at 137. CRP is <0.02. - Patient Data Vitals - most recent: Last Vital Signs Temp 36.4 C 06/09/16 03:19 Pulse 75 06/09/16 03:19 Resp 18 06/09/16 03:19 BP 154/53 H 06/09/16 03:19 Pulse Ox 93 L 06/09/16 05:33 Weight - most recent: 74.797 kg I&O - last 24 hours: Intake & Output 06/08/16 06/09/16 06/09/16 22:59 06:59 14:59 Intake Total 1130 600 Output Total 1400 Balance -270 600 Lab Results last 24 hrs: Laboratory Results - last 24 hr 06/09/16 06/09/16 Range/Units 06:05 06:05 WBC 11.99 H (3.98-10.04) K/mm3 RBC 4.41 (3.98-5.22) M/mm3 Hgb 14.4 (11.2-15.7) gm/L Hct 45.0 H (34.1-44.9) % MCV 102.0 H (79.4-94.8) fl MCH 32.7 H (25.6-32.2) pg MCHC 32.0 L (32.2-35.5) g/dl RDW Std Deviation 50.8 H (36.4-46.3) fL Plt Count 363 (182-369) K/mm3 MPV 10.0 (9.4-12.3) fl Neut % (Auto) 91.2 H (34.0-71.1) % Lymph % (Auto) 4.3 L (19.3-51.7) % [place] % (Auto) 4.2 L (4.7-12.5) % Eos % (Auto) 0 L (0.7-5.8) Baso % (Auto) 0.0 L (0.1-1.2) % Neut # 10.95 H (1.56-6.13) K/mm3 Lymph # 0.51 L (1.18-3.74) K/mm3 [place] # 0.50 H (0.24-0.36) K/mm3 Eos # 0.00 L (0.04-0.36) K/mm3 Baso # 0.00 L (0.01-0.08) K/mm3 Manual Slide Review Abnormal smear Sodium 137 (136-145) mEq/L Potassium 4.8 (3.5-5.1) mEq/L Chloride 100 (98-107) mEq/L Carbon Dioxide 33 H (21-32) mEq/L Anion Gap 8.8 (5-15) BUN 62 H (7-18) mg/dL Creatinine 1.9 H (0.55-1.02) mg/dL Est Cr Clr Drug Dosing 18.23 mL/min Estimated GFR (MDRD) 25 (>60) mL/min BUN/Creatinine Ratio 32.6 H (14-18) Glucose 161 H (83-115) mg/dL Calcium 9.8 (8.5-10.1) mg/dL Med Orders - Current: Current Medications Acyclovir (Zovirax) 800 mg PO DAILY [facility] Albuterol (Proventil Neb Soln) 1.25 mg NEB Q4H PRN PRN Reason: Shortness of Breath Albuterol (Proventil Neb Soln) 2.5 mg NEB QIDRT [facility] Last Admin: 06/09/16 05:33 Dose: Not Given Atenolol (Tenormin) 25 mg PO BID [facility] Last Admin: 06/08/16 21:40 Dose: 25 mg Budesonide (Pulmicort) 0.5 mg NEB BIDRT [facility] Last Admin: 06/09/16 05:26 Dose: 0.5 mg Clonidine HCl (Catapres) 0.1 mg PO BID [facility] Last Admin: 06/08/16 21:40 Dose: 0.1 mg Enoxaparin Sodium (Lovenox) 30 mg SUBCUT DAILY [facility] Last Admin: 06/08/16 09:00 Dose: 30 mg Furosemide (Lasix) 40 mg PO BID[facility]URETIC [facility] Last Admin: 06/09/16 06:09 Dose: 40 mg Azithromycin 500 mg/ Sodium (Chloride) 250 mls @ 250 mls/hr IV Q24H [facility] Levothyroxine Sodium (Synthroid) 100 mcg PO ACBREAKFAST [facility] Last Admin: 06/09/16 06:09 Dose: 100 mcg Magnesium Oxide (Magnesium Oxide) 400 mg PO BID [facility] Last Admin: 06/08/16 21:40 Dose: 400 mg Methylprednisolone Sodium Succinate (Solu-Medrol) 125 mg IVPUSH Q6H [facility] Last Admin: 06/09/16 06:09 Dose: 125 mg Cyclosporine [ (Restasis] 1 Drop) 0 each EYERT BID [facility] Last Admin: 06/08/16 21:44 Dose: 1 each Cyclosporine [ (Restasis] 1 Drop) 0 each EYELF TID [facility] Last Admin: 06/08/16 21:45 Dose: 1 each Ubidecarenone 100 Mg 0 each PO DAILY [facility] Last Admin: 06/08/16 08:58 Dose: Not Given Umeclidinium [place] 62.5 Mcg 30 Puff Inhaler. 0 each INH DAILY [facility] Last Admin: 06/08/16 10:07 Dose: 1 each Magnesuim Potassium (Otc 99 Mg) 0 each PO 1000 [facility] Last Admin: 06/08/16 11:21 Dose: Not Given Arformoterol 15 Mcg ([Brovana]) 0 each INH BID [facility] Last Admin: 06/08/16 20:54 Dose: 1 each Refresh Optive (Advanced Eye Drops) 0 each EYEBOTH Q4H PRN PRN Reason: Dry Eyes Last Admin: 06/08/16 14:03 Dose: 1 each Prednisolone Acetate (Pred Forte 1% Ophth Susp) 0 ml EYERT DAILY [facility] Last Admin: 06/08/16 09:02 Dose: 1 drop Prednisolone Acetate (Pred Forte 1% Ophth Susp) 0 ml EYELF TID [facility] Last Admin: 06/08/16 21:45 Dose: 1 drop Sodium Chloride (Saline Flush) 10 ml FLUSH ASDIRECTED PRN PRN Reason: Keep Vein Open Last Admin: 06/07/16 18:06 Dose: 10 ml Spironolactone (Aldactone) 25 mg PO DAILY@1400 [facility] Last Admin: 06/08/16 13:52 Dose: 25 mg Theophylline (Theophylline Anhydrous) 300 mg PO BID [facility] Last Admin: 06/08/16 21:41 Dose: 300 mg Discontinued Medications Acyclovir (Zovirax) 800 mg PO DAILY [facility] Last Admin: 06/08/16 09:00 Dose: 800 mg Albuterol (Proventil Neb Soln) 2.5 mg NEB ONETIME ONE Stop: 06/07/16 18:54 Last Admin: 06/07/16 19:09 Dose: 2.5 mg Albuterol (Proventil) Confirm Administered Dose 2.5 mg .ROUTE .STK-MED ONE Stop: 06/08/16 20:53 Last Admin: 06/08/16 20:54 Dose: 2.5 mg Albuterol/Ipratropium (Duoneb 3.0-0.5 Mg/3 Ml) 3 ml NEB QID [facility] Albuterol/Ipratropium (Duoneb 3.0-0.5 Mg/3 Ml) 3 ml NEB QIDRT [facility] Last Admin: 06/08/16 06:17 Dose: 3 ml Furosemide (Lasix) 40 mg PO BID [facility] Last Admin: 06/08/16 09:01 Dose: 40 mg Levofloxacin/Dextrose 750 mg/ (Premix) 150 mls @ 100 mls/hr IV ONETIME ONE Stop: 06/08/16 01:03 Last Admin: 06/08/16 00:18 Dose: 100 mls/hr Levofloxacin/Dextrose 750 mg/ (Premix) 150 mls @ 100 mls/hr IV Q48H [facility] Methylprednisolone Sodium Succinate (Solu-Medrol) 125 mg IVPUSH ONETIME ONE Stop: 06/07/16 18:13 Last Admin: 06/07/16 18:05 Dose: 125 mg Arformoterol 15 Mcg ([Brovana]) 0 mcg IH BID [facility] Last Admin: 06/08/16 10:08 Dose: 15 mcg Carboxymethylcell/Glycerin/Pf [Refresh Optive Sensitive D 0 each TOP Q4HR PRN PRN Reason: Dry Eyes - Exam Quality Assessment: supplemental oxygen General: alert, oriented, cooperative, no acute distress HEENT: Pupils equal, Pupils reactive, EOMI, Mucous membr. moist/pink Neck: supple, trachea midline, no JVD, no thyromegaly Lungs: Clear to auscultation, Normal respiratory effort. No: Rhonchi, Wheezing Cardiovascular: regular rate, regular rhythm Abdomen: bowel sounds present, soft, no tenderness, no distension (Female) Exam: Deferred Back Exam: normal inspection, decreased range of motion Extremities: no edema, normal pulses, no tenderness/swelling, no clubbing, no cyanosis, no calf tenderness Peripheral Pulses: 2+: dorsalis pedis (L), dorsalis pedis (R) Skin: warm, dry, intact Neurological: no new focal deficit Psy/Mental Status: alert, normal affect, normal mood - Problem List Review Problem List Initiated/Reviewed/Updated: Yes - My Orders Last 24 Hours: My Active Orders 06/08/16 10:00 Patient's Own Medication [Ptom] 0 each PO 1000 06/08/16 18:14 Up ad Pooja [RC] BID 06/08/16 21:00 Magnesium Oxide 400 mg PO BID 06/09/16 09:00 Azithromycin [Zithromax] 500 mg Sodium Chloride 0.9% [Normal Saline] 250 ml IV Q24H - Plan Plan:: Impression: Acute: COPD exacerbation chronic O2, improving Hypoxia with O2 response, this is chronic Leukocytosis 2/2 to De-margination from steroids Resolved: S/p Mild Hyperkalemia Chronic: HTN ? DHF, completed 2D echo Hyperlipidemia Chronic Respiratory Failure, 2.5-3L O2 dependent Peripheral Edema Hypothyroidism Plan: Continue current treatment Routine AM Labs Taper IV Steroids to TID from Q6 Continue Azithromycin 500 mg IV daily for anti-inflammation IS q2 awake Continue MagOx 400 mg po BID DVT/GI prophylaxis Continue PT/OT Possible d/c in 1-2 days LOS anticipate > 96 hrs, she may requires more time with treatment.
[2016-06-09] MEDS: ARFORMOTEROL 15 MCG INH SCH ×2 (08:11→21:15)
[2016-06-09] MEDS: UMECLIDINIUM BROMIDE 62.5 MCG INH SCH (08:11)
[2016-06-09] MEDS: Magnesium Oxide 400 MG Tab PO SCH ×2 (08:35→20:13)
[2016-06-09] MEDS: Atenolol 25 MG Tab PO SCH ×2 (08:35→20:17)
[2016-06-09] MEDS: cloNIDine 0.1 MG Tab PO SCH ×2 (08:36→20:13)
[2016-06-09] MEDS: Azithromycin 500 MG in Sodium Chloride 0.9% 250 ML IV SCH (08:37)
[2016-06-09] MEDS: Theophylline 300 MG Tab.ER PO SCH ×2 (08:37→20:18)
[2016-06-09] MEDS: Enoxaparin 30 MG/0.3 ML Syringe SUBCUT SCH (08:38)
[2016-06-09] MEDS: prednisoLONE Acetate 1% Ophth Susp 5 ML Bottle EYERT SCH (09:05)
[2016-06-09] MEDS: prednisoLONE Acetate 1% Ophth Susp 5 ML Bottle EYELF SCH ×3 (09:06→20:18)
[2016-06-09] MEDS: Cyclosporine [Restasis] 1 DROP EYERT SCH ×2 (09:08→20:19)
[2016-06-09] MEDS: Cyclosporine [Restasis] 1 DROP EYELF SCH ×3 (09:09→20:19)
[2016-06-09] MEDS: [UNRECOGNIZED DRUG - OTHER] PO SCH (13:53)
[2016-06-09] MEDS: Spironolactone 25 MG Tab PO SCH (14:19)
[2016-06-09] MEDS ORDERED: Calcium Carbonate 500 MG Tab.Chew PO PRN (17:25)
[2016-06-09] MEDS ORDERED: Levofloxacin/Dextrose 5%-Water 750 MG in Premix Bag 1 BAG IV SCH (21:00)
[2016-06-09] MEDS ORDERED: Albuterol 0.5% 2.5 MG/0.5 ML Neb Soln ONE (21:10)
[2016-06-09] MEDS: Albuterol 0.5% 2.5 MG/0.5 ML Neb Soln ONE (21:14)
[2016-06-10] MEDS: methylPREDNISolone Sodium Succinate 125 MG/2 ML SDV IVPUSH SCH ×2 (00:30→06:35)
[2016-06-10] MEDS: Budesonide 0.5 MG/2 ML Neb Susp NEB SCH (06:14)
[2016-06-10] MEDS: Albuterol 0.083% 2.5 MG/3 ML Neb Soln NEB SCH ×2 (06:14→09:39)
[2016-06-10] MEDS: Furosemide 40 MG Tab PO SCH ×2 (06:31→13:59)
[2016-06-10] MEDS: Levothyroxine 100 MCG Tab PO SCH (06:31)
--- NOTE | 2016-06-10 07:32 | PCM.DCSUM1 ---
Discharge Summary - Hospital Course Free Text/Narrative:: 86 year old female, PMH of COPD on home O2, was seen in the ER, was about to be discharged home after evaluation, when she developed profound drop O2 sat 65% on 4 l/min on her own O2 tank; she responded to O2 applied by the ED staff with subsequent rise in saturation to 87%. She was initially sent to the [facility] ED for PE evaluation, however a CTA was not performed. The decision was influenced by her renal function, Cr 2.15. There was also a concern for CHF, 9 days ago, the BNP was 473; today it is low at 259. Hospitalist service is contacted for admission for hypoxia and COPD exacerbation. Patient was admitted; maintained on supplemental oxygen, hydrated. She was started on Zithromax for inflammatory coverage, IV solumedrol. CXR was negative for pneumonia. Flu, strep pneumonia, mycoplasma were all negative. Troponin was negative. Creatinines hovered at 2-1.9 after hydration. She remained on her usual home dosing of diuretics. Echocardiogram was obtained with EF of 70-75%, grade 1 diastolic dysfunction. She resumed theophilline BID for end stage COPD. She slowly improved. Clinically she was much better, maintaining saturations on 2-3L/NC. She will be discharged home today with follow up with her PCP within 5- 7 days. - Discharge Data Discharge Date: 06/10/16 (admit date 06/07/16) Discharge Disposition: Home, Self-Care 01 Condition: Good - Patient Summary/Data Operative Procedure(s) Performed: None Complications: None Consults: Consultations 06/08/16 12:02 PT Evaluation and Treatment [CONS] Routine 06/08/16 12:03 OT Evaluation and Treatment [CONS] Routine Labs Pending at D/C: None Recommended Follow-up Testing/Procedures: Follow up with PCP wtihin 5-7 days of discharge Planned Operative Procedure(s) after DC: None Hospital Course: As above - Patient Instructions Diet: Heart Healthy Diet, Low Sodium Activity: As Tolerated (with supplemental oxygen at 3L/NC) Driving: Do Not Drive Showering/Bathing: May Shower Notify Provider of: Fever, Increased Pain (worsening shortness of breath, cough , chest pain, dizziness, weakness) - Discharge Plan Home Medications: Home Meds Albuterol Sulfate 1 ampule NEB Q4HR PRN 11/12/13 [History] Arformoterol [Brovana] 15 mcg IH BID 11/12/13 [History] Atenolol 25 mg PO BID 11/12/13 [History] Budesonide [Pulmicort] 0.5 mg NEB BID 11/12/13 [History] Ca Cmb No.1/Vit D3/B-6/FA/B12 [Vitamin D3 1,000 Unit] 5,000 mg PO DAILY [History] Furosemide [Lasix] 40 mg PO BID 11/12/13 [History] Beeler-3 Fatty Acids [Fish Oil] 500 mg PO 1400 11/12/13 [History] cycloSPORINE [Restasis] 1 drop OP TID 11/12/13 [History] Acyclovir [Zovirax] 800 mg PO DAILY 03/01/15 [History] Levothyroxine [Synthroid] 100 mcg PO DAILY 03/01/15 [History] cloNIDine [Catapres] 0.1 mg PO BID 03/01/15 [History] Carboxymethylcell/Glycerin/Pf [Refresh Optive Sensitive Drops] 1 drop TOP Q4HR PRN 05/29/16 [History] Magnesuim Potassium Otc 99 mg PO 1000 05/29/16 [History] Theophylline [Theophylline Anhydrous] 300 mg PO BID 05/29/16 [History] Ubidecarenone [Co Q-10] 100 mg PO DAILY 05/29/16 [History] prednisoLONE Acetate [Prednisolone Acetate] 1 drop TOP TID 05/29/16 [History] Albuterol [Ventolin HFA] 2 inh INH Q4HR PRN 06/07/16 [History] Spironolactone [Aldactone] 25 mg PO 1400 06/07/16 [History] Umeclidinium Etta [Incruse Ellipta] 1 inh INH DAILY 06/07/16 [History] cycloSPORINE [Restasis] 1 drop OP BID 06/07/16 [History] prednisoLONE Acetate [Prednisolone Acetate] 1 drop OP DAILY 06/07/16 [History] Patient Handouts: Chronic Obstructive Pulmonary Disease Exacerbation, Easy-to- Read, Corneal Transplant, Heart Failure, [id number], Corneal Transplant, Care After Forms: ED Department Discharge Referrals: Fatuma Marquez NP [Primary Care Provider] - - Discharge Summary/Plan Comment DC Time >30 min.: Yes (40 min) - General Info Date of Service: 06/10/16 Admission Dx/Problem (Free Text: Admission Diagnosis/Problem Admission Diagnosis/Problem COPD, Severe chronic obstructive pulmonary disease Pati is seen today resting comfortably in bed. No overnight concerns. she is anxious for discharge home today. Functional Status: Reports: pain controlled, tolerating diet, ambulating, urinating. Denies: new symptoms - Review of Systems General: Reports: no symptoms HEENT: Reports: no symptoms Pulmonary: Reports: shortness of breath (chronic and at baseline). Denies: pleuritic chest pain Cardiovascular: Reports: dyspnea on exertion (chronic and at baseline). Denies : chest pain, palpitations Gastrointestinal: Reports: No symptoms Genitourinary: Reports: no symptoms Musculoskeletal: Reports: no symptoms Skin: Reports: no symptoms Neurological: Reports: no symptoms Psychiatric: Reports: no symptoms - Patient Data Vitals - Most Recent: Last Vital Signs Temp 97.5 F 06/10/16 03:21 Pulse 73 06/10/16 03:21 Resp 20 06/10/16 03:21 BP 137/92 H 06/10/16 03:21 Pulse Ox 93 L 06/10/16 06:16 Weight - Most Recent: 165 lb 12.8 oz I&O - Last 24 hours: Intake & Output 06/09/16 06/10/16 06/10/16 22:59 06:59 14:59 Intake Total 1630 925 Output Total 1000 800 Balance 630 125 Lab Results - Last 24 hrs: Laboratory Results - last 24 hr 06/09/16 Range/Units 06:05 C-Reactive Protein < 0.2 (<1.0) mg/dL EZIO Results - Last 24 hrs: Microbiology 06/08/16 02:02 Streptococcus pneumoniae Antigen (M - Final Urine - Clean Catch Midstream Med Orders - Current: Current Medications Acyclovir (Zovirax) 800 mg PO DAILY [facility] Last Admin: 06/09/16 08:37 Dose: 800 mg Albuterol (Proventil Neb Soln) 1.25 mg NEB Q4H PRN PRN Reason: Shortness of Breath Albuterol (Proventil Neb Soln) 2.5 mg NEB QIDRT [facility] Last Admin: 06/10/16 06:14 Dose: 2.5 mg Atenolol (Tenormin) 25 mg PO BID [facility] Last Admin: 06/09/16 20:17 Dose: 25 mg Budesonide (Pulmicort) 0.5 mg NEB BIDRT [facility] Last Admin: 06/10/16 06:14 Dose: 0.5 mg Calcium Carbonate/Glycine (Tums) 1,000 mg PO Q2HR PRN PRN Reason: Indigestion Last Admin: 06/09/16 17:53 Dose: 1,000 mg Clonidine HCl (Catapres) 0.1 mg PO BID [facility] Last Admin: 06/09/16 20:13 Dose: 0.1 mg Enoxaparin Sodium (Lovenox) 30 mg SUBCUT DAILY [facility] Last Admin: 06/09/16 08:38 Dose: 30 mg Furosemide (Lasix) 40 mg PO BIDDIURETIC [facility] Last Admin: 06/10/16 06:31 Dose: 40 mg Azithromycin 500 mg/ Sodium (Chloride) 250 mls @ 250 mls/hr IV Q24H [facility] Last Admin: 06/09/16 08:37 Dose: 250 mls/hr Levothyroxine Sodium (Synthroid) 100 mcg PO ACBREAKFAST [facility] Last Admin: 06/10/16 06:31 Dose: 100 mcg Magnesium Oxide (Magnesium Oxide) 400 mg PO BID [facility] Last Admin: 06/09/16 20:13 Dose: 400 mg Cyclosporine [ (Restasis] 1 Drop) 0 each EYERT BID [facility] Last Admin: 06/09/16 20:19 Dose: 1 each Cyclosporine [ (Restasis] 1 Drop) 0 each EYELF TID [facility] Last Admin: 06/09/16 20:19 Dose: 1 each Ubidecarenone 100 Mg 0 each PO DAILY [facility] Last Admin: 06/09/16 08:38 Dose: Not Given Umeclidinium Etta 62.5 Mcg 30 Puff Inhaler. 0 each INH DAILY [facility] Last Admin: 06/09/16 08:11 Dose: 1 each Magnesuim Potassium (Otc 99 Mg) 0 each PO 1000 [facility] Last Admin: 06/09/16 13:53 Dose: Not Given Arformoterol 15 Mcg ([Brovana]) 0 each INH BID [facility] Last Admin: 06/09/16 21:15 Dose: 1 each Refresh Optive (Advanced Eye Drops) 0 each EYEBOTH Q4H PRN PRN Reason: Dry Eyes Last Admin: 06/08/16 14:03 Dose: 1 each Prednisolone Acetate (Pred Forte 1% Ophth Susp) 0 ml EYERT DAILY [facility] Last Admin: 06/09/16 09:05 Dose: 1 drop Prednisolone Acetate (Pred Forte 1% Ophth Susp) 0 ml EYELF TID [facility] Last Admin: 06/09/16 20:18 Dose: 1 drop Prednisone (Prednisone) 10 mg PO DAILY BHUPENDRA PRN Reason: Taper Stop: 06/22/16 08:59 Sodium Chloride (Saline Flush) 10 ml FLUSH ASDIRECTED PRN PRN Reason: Keep Vein Open Last Admin: 06/07/16 18:06 Dose: 10 ml Spironolactone (Aldactone) 25 mg PO DAILY@1400 [facility] Last Admin: 06/09/16 14:19 Dose: 25 mg Theophylline (Theophylline Anhydrous) 300 mg PO BID [facility] Last Admin: 06/09/16 20:18 Dose: 300 mg Discontinued Medications Acyclovir (Zovirax) 800 mg PO DAILY [facility] Last Admin: 06/08/16 09:00 Dose: 800 mg Albuterol (Proventil Neb Soln) 2.5 mg NEB ONETIME ONE Stop: 06/07/16 18:54 Last Admin: 06/07/16 19:09 Dose: 2.5 mg Albuterol (Proventil) Confirm Administered Dose 2.5 mg .ROUTE .STK-MED ONE Stop: 06/08/16 20:53 Last Admin: 06/09/16 21:14 Dose: 2.5 mg Albuterol (Proventil) Confirm Administered Dose 2.5 mg .ROUTE .STK-MED ONE Stop: 06/09/16 21:11 Last Admin: 06/09/16 21:20 Dose: 2.5 mg Albuterol/Ipratropium (Duoneb 3.0-0.5 Mg/3 Ml) 3 ml NEB QID BHUPENDRA Albuterol/Ipratropium (Duoneb 3.0-0.5 Mg/3 Ml) 3 ml NEB QIDRT [facility] Last Admin: 06/08/16 06:17 Dose: 3 ml Furosemide (Lasix) 40 mg PO BID [facility] Last Admin: 06/08/16 09:01 Dose: 40 mg Levofloxacin/Dextrose 750 mg/ (Premix) 150 mls @ 100 mls/hr IV ONETIME ONE Stop: 06/08/16 01:03 Last Admin: 06/08/16 00:18 Dose: 100 mls/hr Levofloxacin/Dextrose 750 mg/ (Premix) 150 mls @ 100 mls/hr IV Q48H [facility] Methylprednisolone Sodium Succinate (Solu-Medrol) 125 mg IVPUSH ONETIME ONE Stop: 06/07/16 18:13 Last Admin: 06/07/16 18:05 Dose: 125 mg Methylprednisolone Sodium Succinate (Solu-Medrol) 125 mg IVPUSH Q6H [facility] Last Admin: 06/09/16 06:09 Dose: 125 mg Methylprednisolone Sodium Succinate (Solu-Medrol) 125 mg IVPUSH Q8H [facility] Last Admin: 06/10/16 06:35 Dose: 125 mg Arformoterol 15 Mcg ([Brovana]) 0 mcg IH BID [facility] Last Admin: 06/08/16 10:08 Dose: 15 mcg Carboxymethylcell/Glycerin/Pf [Refresh Optive Sensitive D 0 each TOP Q4HR PRN PRN Reason: Dry Eyes - Exam Quality Assessment: Reports: supplemental oxygen, DVT prophylaxis General: Reports: alert, oriented, cooperative, no acute distress HEENT: Reports: Pupils equal, Pupils reactive, EOMI, Mucous membr. moist/pink Neck: Reports: supple Lungs: Reports: Clear to auscultation, Normal respiratory effort, Decreased breath sounds (throughout) Cardiovascular: Reports: regular rate, regular rhythm, no murmurs Abdomen: Reports: bowel sounds present, soft, no tenderness, no distension (Female) Exam: Deferred Rectal (Female) Exam: Deferred Skin: Reports: warm, dry, intact Neurological: Reports: no new focal deficit Psy/Mental Status: Reports: alert, normal affect, normal mood *Q Meaningful Use (DIS) - VTE *Q VTE Criteria *Q: - Stroke *Q Stroke Criteria *Q: - AMI *Q AMI Criteria *Q:
[2016-06-10] MEDS: cloNIDine 0.1 MG Tab PO SCH (08:26)
[2016-06-10 08:27] VITALS: BP 127/55
[2016-06-10] MEDS: Enoxaparin 30 MG/0.3 ML Syringe SUBCUT SCH (08:27)
[2016-06-10] MEDS: Magnesium Oxide 400 MG Tab PO SCH (08:27)
[2016-06-10] MEDS: prednisoLONE Acetate 1% Ophth Susp 5 ML Bottle EYELF SCH (08:32)
[2016-06-10] MEDS: prednisoLONE Acetate 1% Ophth Susp 5 ML Bottle EYERT SCH (08:32)
[2016-06-10] MEDS: Cyclosporine [Restasis] 1 DROP EYELF SCH (08:34)
[2016-06-10] MEDS: Cyclosporine [Restasis] 1 DROP EYERT SCH (08:34)
[2016-06-10] MEDS: Theophylline 300 MG Tab.ER PO SCH (08:38)
[2016-06-10] MEDS: Atenolol 25 MG Tab PO SCH (08:41)
[2016-06-10] MEDS ORDERED: predniSONE 20 MG Tab PO SCH (09:00)
[2016-06-10] MEDS ORDERED: predniSONE 10 MG Tab PO SCH (09:00)
[2016-06-10] MEDS: Azithromycin 500 MG in Sodium Chloride 0.9% 250 ML IV SCH (09:04)
[2016-06-10] MEDS: ARFORMOTEROL 15 MCG INH SCH (09:39)
[2016-06-10] MEDS: UMECLIDINIUM BROMIDE 62.5 MCG INH SCH (09:41)
[2016-06-10] MEDS: [UNRECOGNIZED DRUG - OTHER] PO SCH (10:40)
[2016-06-10] MEDS: Spironolactone 25 MG Tab PO SCH (13:59)
[2016-06-13] MEDS ORDERED: predniSONE 10 MG Tab PO SCH (09:00)
[2016-06-16] MEDS ORDERED: predniSONE 20 MG Tab PO SCH (09:00)
[2016-06-19] MEDS ORDERED: predniSONE 10 MG Tab PO SCH (09:00)
== END 2016-06-10 14:15 | disposition home or self-care (01) | DRG 191 ==
LOC: JD.ED 17:19 → JD.MS 20:25
PROVIDERS: ADMIT Internal Medicine Cardiovascular Disease; ATTEND Internal Medicine Cardiovascular Disease
DX: J44.1 Chronic obstructive pulmonary disease with (acute) exacerbation (principal); J96.10 Chronic respiratory failure, unspecified whether with hypoxia or hypercapnia; I50.30 Unspecified diastolic (congestive) heart failure; R06.09 Other forms of dyspnea; E78.00 Pure hypercholesterolemia, unspecified; J45.909 Unspecified asthma, uncomplicated; I50.9 Heart failure, unspecified; Z87.891 Personal history of nicotine dependence; R09.02 Hypoxemia; E87.5 Hyperkalemia; I11.0 Hypertensive heart disease with heart failure; E03.9 Hypothyroidism, unspecified; E78.5 Hyperlipidemia, unspecified; Z99.81 Dependence on supplemental oxygen; Z79.899 Other long term (current) drug therapy; Z88.8 Allergy status to other drugs, medicaments and biological substances
CPT/HCPCS: 36415; 71020; 71020-26; 80048; 80053; 80061; 80198; 83880; 84484; 85025; 85379; 86140; 86738; 87804; 87899; 93005; 93306; 94640; 94640-76; 94664; 94761; 96374; 97116-GP; 97161-GP; 97165-GO; 99232; 99239; 99285; 99285-25; A9270-GY; J0456; J1650; J1956; J2930; J7050